=== PATIENT | male | born 1985 | race African-American/Black ===

== ENCOUNTER → 2018-05-26 | Outpatient (CLI) | payer OTHER ==
--- NOTE | 2018-05-26 16:23 | ECHOF ---
Referral Reason:chest pain on breathing R07.1 MEASUREMENTS -------- HEIGHT: 190.5 cm WEIGHT: 126.6 kg BP: 131/67 RVIDd: 3.1 cm (< 3.3) IVSd: 1.3 cm (0.6 - 1.1) LVIDd: 4.4 cm (3.9 - 5.3) LVPWd: 1.3 cm (0.6 - 1.1) IVSs: 1.6 cm LVIDs: 2.6 cm LVPWs: 1.8 cm LAESV Index (A-L): 24.13 ml/m Ao Diam: 3.3 cm (2.0 - 3.7) AV Cusp: 2.4 cm (1.5 - 2.6) LA Diam: 2.8 cm (2.7 - 3.8) EPSS: 0.5 cm MV E Omar: 0.70 m/s MV DecT: 314 ms MV A Omar: 0.80 m/s MV E/A Ratio: 0.87 RAP: 5.00 mmHg RVSP: 24.97 mmHg MV EF SLOPE: 123.31 mm/s (70 - 150) MV EXCURSION: 1.61 cm (> 18.000) FINDINGS -------- Sinus rhythm. This was a technically adequate study. The left ventricular size is normal. There is mild concentric left ventricular hypertrophy. Overa ll left ventricular systolic function is normal with, an EF between 55 - 60 %. The right ventricle is normal in size and function. Normal LA size by volume 22+/-6 ml/m2. The right atrium is normal in size. The aortic valve is trileaflet, and appears structurally normal. No aortic stenosis or regurgitation. The mitral valve is normal. There is trace mitral regurgitation. Trace tricuspid regurgitation present. Right ventricular systolic pressure is normal at < 35 mmHg. There is no evidence of pulmonary hypertension. Trace/mild (physiologic) pulmonic regurgitation. The aortic root size is normal. Normal inferior vena cava with normal inspiratory collapse consistent with estimated right atrial pre ssure of 5 mmHg. There is no pericardial effusion. CONCLUSIONS -------- 1. Sinus rhythm. 2. This was a technically adequate study. 3. The left ventricular size is normal. 4. There is mild concentric left ventricular hypertrophy. 5. Overall left ventricular systolic function is normal with, an EF between 55 - 60 %. 6. Normal LA size by volume 22+/-6 ml/m2. 7. The aortic valve is trileaflet, and appears structurally normal. No aortic stenosis or regurgitati on. 8. There is trace mitral regurgitation. 9. Trace tricuspid regurgitation present. 10. Right ventricular systolic pressure is normal at < 35 mmHg. 11. There is no evidence of pulmonary hypertension. 12. Trace/mild (physiologic) pulmonic regurgitation. 13. The aortic root size is normal. 14. There is no pericardial effusion. PARTS ROOM CLERK: Dannie Eagle RDCS
== END | disposition home or self-care (01) ==
LOC: RADECHMAIN 15:35
PROVIDERS: ATTEND Family Medicine
DX: I08.1 Rheumatic disorders of both mitral and tricuspid valves (principal)
CPT/HCPCS: 93306

== ENCOUNTER 2018-11-11 17:47 | Emergency (ER) | payer OTHER ==
[2018-11-11 18:07] VITALS: BP 143/84; PULSE 81; RESP 16; TEMP 98.1
--- NOTE | 2018-11-11 19:28 | ED ---
ENT HPI - General Chief complaint: ENT Stated complaint: ear pain/trouble hearing Time Seen by Provider: 11/11/18 18:09 Source: patient, RN notes reviewed, old records reviewed Mode of arrival: ambulatory Limitations: no limitations - History of Present Illness Initial comments: Patient is a 33-year-old male who presents to complain of right ear pain. Patient reports his been painful for the past 3 days after he put a Q-tip in his ear while in the shower. Patient states that he is noticed a popping sensation with that his ear since that time. States he also had an episode of severe dizziness after he yawned. Patient states that he has had muffled hearing from the ear. He reports he has had upper respiratory congestion as well as the past week. Patient is concerned he may have perforated his eardrum. Patient denies any other symptoms. - Related Data Home Medications Medication Instructions Recorded Confirmed Albuterol Inhaler [Ventolin Hfa 2 inh INHALATION QID 02/24/16 02/24/16 Inhaler] Ibuprofen [Motrin] 600 mg PO TID 02/24/16 02/24/16 predniSONE 10 mg PO DAILY 02/24/16 02/24/16 Previous Rx's Medication Instructions Recorded Hydrocortisone Suppository 25 mg RECTAL BID #14 supp 02/25/16 [Anusol-HC Suppository] Amoxicillin 500 mg PO TID #21 capsule 11/11/18 Meclizine [Antivert] 25 mg PO TID #15 tab 11/11/18 Allergies Allergy/AdvReac Type Severity Reaction Status Date / Time No Known Allergies Allergy Verified 11/11/18 18:07 Review of Systems ROS Statement: Those systems with pertinent positive or pertinent negative responses have been documented in the HPI. ROS Other: All systems not noted in ROS Statement are negative. Past Medical History Additional Past Medical History / Comment(s): TENDONITIS LEFT THUMB History of Any Multi-Drug Resistant Organisms: None Reported Additional Past Surgical History / Comment(s): CRANIOTOMY 2007- SINUSITIS Past Psychological History: No Psychological Hx Reported Smoking Status: Current every day smoker Past Alcohol Use History: Occasional Past Drug Use History: None Reported General Exam - General Exam Comments Initial Comments: This patient's a 33-year-old male. Alert and oriented. Patient appears in no acute distress. Limitations: no limitations General appearance: alert, in no apparent distress Head exam: Present: atraumatic, normocephalic, normal inspection Eye exam: Present: normal appearance, PERRL, EOMI. Absent: scleral icterus, conjunctival injection, periorbital swelling ENT exam: Present: normal exam, mucous membranes moist. Absent: TM's normal bilaterally (Shows erythematous bulging left TM. No evidence of TM perforation. No drainage noted.) Neck exam: Present: normal inspection. Absent: tenderness, meningismus, lymphadenopathy Respiratory exam: Present: normal lung sounds bilaterally. Absent: respiratory distress, wheezes, rales, rhonchi, stridor Cardiovascular Exam: Present: regular rate, normal rhythm, normal heart sounds. Absent: systolic murmur, diastolic murmur, rubs, gallop, clicks Back exam: Present: normal inspection Neurological exam: Present: alert, oriented X3, CN II-XII intact Psychiatric exam: Present: normal affect, normal mood Course Vital Signs 11/11/18 18:03 Temperature 98.1 F Pulse Rate 81 Respiratory 16 Rate Blood Pressure 143/84 O2 Sat by Pulse 98 Oximetry Medical Decision Making - Medical Decision Making This is a 33-year-old male who presents razor today with upper respiratory congestion, left ear pain. Please acute disease 3 days also concern for perforation. This time I do not see any evidence of drainage or perforation. Patient does have bulging TM. He also complained of some dizziness. Concerned congestion may have caused some vertigo like symptoms. At this time we'll treat the Patient for otitis media with no swollen and erythematous TM is. Patient has been advised to ski trip here from this point forward. We'll also discharge Patient with Antivert. Discussed using decongestant medicine. All questions answered. Disposition Clinical Impression: Left otitis media Disposition: HOME SELF-CARE Condition: Good Instructions: Earache (ED) Additional Instructions: Patient advised to rest, follow-up with primary care physician. Return to the emergency department if any alarming signs or symptoms occur. Prescriptions: Amoxicillin 500 mg PO TID #21 capsule Meclizine [Antivert] 25 mg PO TID #15 tab Is patient prescribed a controlled substance at d/c from ED?: No Referrals: Yulisa Knight MD [Primary Care Provider] - 1-2 days Time of Disposition: 19:27
== END 2018-11-11 19:44 | disposition home or self-care (01) ==
LOC: EC 17:47
DX: H66.92 Otitis media, unspecified, left ear (principal); F17.200 Nicotine dependence, unspecified, uncomplicated; Z79.1 Long term (current) use of non-steroidal anti-inflammatories (NSAID); Z79.52 Long term (current) use of systemic steroids; Z79.899 Other long term (current) drug therapy
CPT/HCPCS: 99283

== ENCOUNTER 2019-04-04 13:52 | Emergency (ER) | payer OTHER ==
[2019-04-04 14:36] VITALS: TEMP 97.9
[2019-04-04] MEDS ORDERED: MORPHINE SULFATE 4 MG/ML SYRINGE IM STA (15:02)
--- NOTE | 2019-04-04 15:15 | ED ---
Lower Extremity Injury HPI - General Chief Complaint: Extremity Injury, Lower Stated Complaint: LEFT FOOT PAIN, Hx MULTIPLE Sx LAST 2 YEARS Time Seen by Provider: 04/04/19 14:42 Source: patient Mode of arrival: wheelchair Limitations: no limitations - History of Present Illness Initial Comments: 33-year-old male presenting for left foot pain. Patient states he has had multiple surgeries over the course of 2 years he states in July 2017 he had a injury to his right knee and ankle after supple injury resulting in foot drop. 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 He states he is on Percocet 10 mg. Patient states he just went back to work on Tuesday he states he has been on his feet more than he has been in the past 2 years. He states that he has increasing pain of the left ankle. Patient states he has noticed mild swelling after work of the left ankle. Patient does have history of DVT after fracture in 2016 denies use of anticoagulation therapy. Patient states he did slightly rolled the left ankle when stepping while at work. He was concerned of possible injury and presented for evaluation pt took 5mg of percocet this morning. Pt states there is no changes in his baseline deficits of numbness or range of motion. Patient denies fever chills night sweats redness or warmth of the left lower extremity or ankle. Denies fall remaining ROS (-). Upon arrival pt appears well, no signs of acute distress. - Related Data Home Medications Medication Instructions Recorded Confirmed Albuterol Inhaler [Ventolin Hfa 2 inh INHALATION QID 02/24/16 04/04/19 Inhaler] Ibuprofen [Motrin] 600 mg PO TID 02/24/16 04/04/19 Previous Rx's Medication Instructions Recorded Hydrocortisone Suppository 25 mg RECTAL BID #14 supp 02/25/16 [Anusol-HC Suppository] Meclizine [Antivert] 25 mg PO TID #15 tab 11/11/18 Allergies Allergy/AdvReac Type Severity Reaction Status Date / Time No Known Allergies Allergy Verified 04/04/19 14:36 Review of Systems ROS Statement: Those systems with pertinent positive or pertinent negative responses have been documented in the HPI. ROS Other: All systems not noted in ROS Statement are negative. Past Medical History Additional Past Medical History / Comment(s): TENDONITIS LEFT THUMB History of Any Multi-Drug Resistant Organisms: None Reported Additional Past Surgical History / Comment(s): CRANIOTOMY 2007- SINUSITIS Past Psychological History: No Psychological Hx Reported Smoking Status: Current every day smoker Past Alcohol Use History: Occasional Past Drug Use History: None Reported General Exam - General Exam Comments Initial Comments: General: The patient is awake and alert, in no distress, and does not appear acutely ill. Eye: +3 mm pupils are equal, round and reactive to light, extra-ocular movements are intact. No nystagmus. There is normal conjunctiva bilaterally. No signs of icterus. Ears, nose, mouth and throat: There are moist mucous membranes and no oral lesions. Neck: The neck is supple, there is no tenderness or JVD. Cardiovascular: There is a regular rate and rhythm. No murmur, rub or gallop is appreciated. Respiratory: Lungs are clear to auscultation, respirations are non-labored, breath sounds are equal. No wheezes, stridor, rales, or rhonchi. Gastrointestinal: Soft, non-distended, non-tender abdomen without masses or organomegaly noted. There is no rebound or guarding present. No CVA tenderness. Bowel sounds are unremarkable. Musculoskeletal: Normal ROM, no tenderness. Strength 5/5. Sensation intact. Radial pulses equal bilaterally 2+. Neurological: A&O x 3. CN II-XII intact, There are no obvious motor or sensory deficits. Coordination appears grossly intact. Speech is normal. Skin: Skin is warm and dry and no rashes or lesions are noted. Multiple scars of the left ankle including anterior midline, medial, lateral. No erythema no warmth no pitting edema, mild soft tissue swelling of the left foot. Pain to palpation of the lateral aspect of the left ankle. Psychiatric: Cooperative, appropriate mood & affect, normal judgment. Limitations: no limitations Course Vital Signs 04/04/19 04/04/19 14:33 16:55 Temperature 97.9 F 97.9 F Pulse Rate 86 82 Respiratory 16 18 Rate Blood Pressure 130/77 136/78 O2 Sat by Pulse 97 100 Oximetry Medical Decision Making - Medical Decision Making 33-year-old male with history of multiple surgeries on the left lower extremity. Patient denies any changes in sensation or weakness in comparison the patient's baseline. Patient has +2 dorsalis pedis pulses bilaterally. No erythema or signs of infection on examination. Pt concerned of injury. Recently started work again on feet weight bearing more than usual--just feels most likely differential diagnosis for cause of pain. Given patient's history of DVT ultrasounds obtained which revealed no evidence of acute deep venous thrombosis. Imaging studies reveal no acute osseous injury. There is possibility of possible tendon injury did recommend follow-up with patient's with [facility] surgeon who performed surgeries. Y states she made an appointment while they were in the emergency department. I recommended no work until patient is about by orthopedic surgery. Patient is agreeable to plan. Patient is to continue medication as prescribed by pain management clinic. Patient was provided pain management in the emergency department. At this time after disc ussing case attempt by Dr. Rosario we feel patient is stable for discharge with outpatient follow-up. Return parameters were discussed at length of both patient and patient's family. Disposition Clinical Impression: Chronic pain of left ankle, Acute left ankle pain Disposition: HOME SELF-CARE Condition: Good Instructions (If sedation given, give patient instructions): R.I.C.E. Treatment (ED) Additional Instructions: Please use medication as discussed. Please follow-up with orthopedic surgeon within the next week. Please return to emergency room if the symptoms increase or worsen or for any other concerns. Is patient prescribed a controlled substance at d/c from ED?: No Referrals: Yulisa Knight MD [Primary Care Provider] - 1-2 days Time of Disposition: 16:30
--- NOTE | 2019-04-04 15:36 | XR ---
EXAMINATION TYPE: XR ankle complete LT DATE OF EXAM: 04/04/2019 COMPARISON: NONE HISTORY: Pain TECHNIQUE: 3 views of the left ankle are submitted for evaluation. FINDINGS: There is no evidence for fracture or dislocation. Ankle mortise is intact. Soft tissues are within normal limits. IMPRESSION: 1. No evidence for acute fracture.
--- NOTE | 2019-04-04 16:26 | US ---
EXAMINATION TYPE: US venous doppler duplex LE LT DATE OF EXAM: 04/04/2019 4:17 PM COMPARISON: NONE CLINICAL HISTORY: Pain. Swelling, DVT x 2 years ago in left leg. Not on blood thinners now. Multipl e surgeries on left leg. Left ankle swelling. Patient states missing a step yesterday. SIDE PERFORMED: Left TECHNIQUE: The lower extremity deep venous system is examined utilizing real time linear array sonog jackson with graded compression, doppler sonography and color-flow sonography. VESSELS IMAGED: External Iliac Vein (EIV) Common Femoral Vein Deep Femoral Vein Greater Saphenous Vein * Femoral Vein Popliteal Vein Small Saphenous Vein * Proximal Calf Veins (* superficial vessels) Left Leg: Negative for DVT IMPRESSION: No evidence for DVT at this time.
[2019-04-04] MEDS ORDERED: HYDROmorphone 0.5 MG/0.5 ML SYRINGE IM STA (16:46)
[2019-04-04 17:31] VITALS: BP 136/78; PULSE 82; RESP 18
== END 2019-04-04 16:55 | disposition home or self-care (01) ==
LOC: EC 13:52
DX: M25.572 Pain in left ankle and joints of left foot (principal); G89.29 Other chronic pain; M79.89 Other specified soft tissue disorders; L90.5 Scar conditions and fibrosis of skin; M79.672 Pain in left foot; M21.371 Foot drop, right foot; F17.200 Nicotine dependence, unspecified, uncomplicated; Z79.1 Long term (current) use of non-steroidal anti-inflammatories (NSAID); Z79.891 Long term (current) use of opiate analgesic; Z79.899 Other long term (current) drug therapy; Z86.718 Personal history of other venous thrombosis and embolism; Z98.890 Other specified postprocedural states
CPT/HCPCS: 73610; 93971; 99284; 96372 ×2; J2270; J1170

== ENCOUNTER 2019-10-29 06:11 | Emergency (ER) | payer OTHER ==
--- NOTE | 2019-10-29 06:28 | ED ---
Lower Extremity Injury HPI - General Stated Complaint: Lft Leg Pain Time Seen by Provider: 10/29/19 06:18 Source: patient, RN notes reviewed Mode of arrival: ambulatory Limitations: no limitations - History of Present Illness Initial Comments: 34-year-old male presents emergency Department with chief complaint of left knee pain. Patient states has been ongoing since his surgery was 6 months ago for ACL, LCL and MCL repair. Patient states he had very extensive surgery. Patient states that he recently started new job 3 skeletal he's been having worsening symptoms. Denies any paresthesias. Patient states that his knee swells which is constant he wears compression stockings since the surgery. Patient is unable to see his orthopedic physician secondary to insurance changes. - Related Data Home Medications Medication Instructions Recorded Confirmed Albuterol Inhaler [Ventolin Hfa 2 inh INHALATION QID 02/24/16 04/04/19 Inhaler] Ibuprofen [Motrin] 600 mg PO TID 02/24/16 04/04/19 Previous Rx's Medication Instructions Recorded Hydrocortisone Suppository 25 mg RECTAL BID #14 supp 02/25/16 [Anusol-HC Suppository] Meclizine [Antivert] 25 mg PO TID #15 tab 11/11/18 Allergies Allergy/AdvReac Type Severity Reaction Status Date / Time No Known Allergies Allergy Verified 04/04/19 14:36 Review of Systems ROS Statement: Those systems with pertinent positive or pertinent negative responses have been documented in the HPI. ROS Other: All systems not noted in ROS Statement are negative. Past Medical History Additional Past Medical History / Comment(s): TENDONITIS LEFT THUMB History of Any Multi-Drug Resistant Organisms: None Reported Additional Past Surgical History / Comment(s): CRANIOTOMY 2007- SINUSITIS Past Psychological History: No Psychological Hx Reported Smoking Status: Current every day smoker Past Alcohol Use History: Occasional Past Drug Use History: None Reported General Exam General appearance: alert, in no apparent distress Head exam: Present: atraumatic, normocephalic, normal inspection Respiratory exam: Present: normal lung sounds bilaterally. Absent: respiratory distress, wheezes, rales, rhonchi, stridor Cardiovascular Exam: Present: regular rate, normal rhythm, normal heart sounds. Absent: systolic murmur, diastolic murmur, rubs, gallop, clicks Extremities exam: Present: other (Left knee there is a lateral scar well-healed, there is mild swelling, diffuse times with palpation no increased warmth neurovascular intact leg tenderness) Course Vital Signs 10/29/19 06:24 Temperature 98.1 F Pulse Rate 85 Respiratory 18 Rate Blood Pressure 131/75 O2 Sat by Pulse 98 Oximetry Medical Decision Making - Medical Decision Making 34-year-old presented for left leg knee pain. Patient's x-ray shows possible surgical changes osteoarthritis old ligamentous injuries. Patient had increasing pain with returning to work. The explain this is most likely from not conditioning. Patient advised to wear his knee brace follow-up with orthopedic physician continue to ice and rest and elevate. Disposition Clinical Impression: Left knee pain Disposition: HOME SELF-CARE Condition: Stable Instructions (If sedation given, give patient instructions): Knee Pain (ED) Additional Instructions: Please return to the Emergency Department if symptoms worsen or any other concerns. Is patient prescribed a controlled substance at d/c from ED?: No Referrals: Yulisa Knight MD [Primary Care Provider] - 1-2 days Levi Horowitz DO [Doctor of Osteopathic Medicine] - 1-2 days Time of Disposition: 06:50
[2019-10-29 06:38] VITALS: BP 131/75; PULSE 85; RESP 18; TEMP 98.1
--- NOTE | 2019-10-29 06:41 | XR ---
EXAMINATION TYPE: XR knee complete LT DATE OF EXAM: 10/29/2019 COMPARISON: NONE HISTORY: Knee pain TECHNIQUE: 3 views FINDINGS: There is calcification medially and laterally at the knee joint. There is hypertrophic mild spurring. There is old reconstructive surgery noted. There is no definite knee joint effusion. There is minor spurring on the patella. IMPRESSION: Old ligamentous injury. Previous surgery. No fracture. Mild osteoarthritis.
[2019-10-29] MEDS ORDERED: oxyCODONE-APAP 7.5-325MG 1 EACH TAB PO STA (06:49)
== END 2019-10-29 07:02 | disposition home or self-care (01) ==
LOC: EC 06:11
DX: M25.562 Pain in left knee (principal); M79.89 Other specified soft tissue disorders; F17.200 Nicotine dependence, unspecified, uncomplicated; Z79.1 Long term (current) use of non-steroidal anti-inflammatories (NSAID); Z87.39 Personal history of other diseases of the musculoskeletal system and connective tissue; Z98.890 Other specified postprocedural states
CPT/HCPCS: 99283

== ENCOUNTER 2019-12-01 00:12 | Emergency (ER) | payer OTHER ==
[2019-12-01 00:19] VITALS: TEMP 98
[2019-12-01] MEDS ORDERED: KETOROLAC 30 MG/ML 1 ML VIAL IM STA (00:48)
--- NOTE | 2019-12-01 01:07 | ED ---
General Adult HPI - General Chief complaint: Extremity Injury, Lower Stated complaint: left foot & knee pain Time Seen by Provider: 12/01/19 00:22 Source: patient, RN notes reviewed Mode of arrival: ambulatory Limitations: no limitations - History of Present Illness Initial comments: 34-year-old male presents to the emergency department for a chief complaint of left foot and ankle pain. Patient states that he was at work using a floor buffer when he twisted his left ankle wrong. States he felt a pop. States that since that time he has had severe pain in his left foot and ankle. Patient has surgical history of the left ankle 2 years ago. He states he can and landed on it but it is painful.Patient has no other complaints at this time including shortness of breath, chest pain, abdominal pain, nausea or vomiting, headache, or visual changes. - Related Data Home Medications Medication Instructions Recorded Confirmed Albuterol Inhaler [Ventolin Hfa 2 inh INHALATION QID 02/24/16 04/04/19 Inhaler] Ibuprofen [Motrin] 600 mg PO TID 02/24/16 04/04/19 Previous Rx's Medication Instructions Recorded Hydrocortisone Suppository 25 mg RECTAL BID #14 supp 02/25/16 [Anusol-HC Suppository] Meclizine [Antivert] 25 mg PO TID #15 tab 11/11/18 Allergies Allergy/AdvReac Type Severity Reaction Status Date / Time No Known Allergies Allergy Verified 12/01/19 00:19 Review of Systems ROS Statement: Those systems with pertinent positive or pertinent negative responses have been documented in the HPI. ROS Other: All systems not noted in ROS Statement are negative. Past Medical History Additional Past Medical History / Comment(s): TENDONITIS LEFT THUMB History of Any Multi-Drug Resistant Organisms: None Reported Past Surgical History: Orthopedic Surgery Additional Past Surgical History / Comment(s): CRANIOTOMY 2007- SINUSITIS, Past Psychological History: No Psychological Hx Reported Smoking Status: Current every day smoker Past Alcohol Use History: Occasional Past Drug Use History: None Reported General Exam Limitations: no limitations General appearance: alert, in no apparent distress Head exam: Present: atraumatic, normocephalic, normal inspection Eye exam: Present: normal appearance, PERRL, EOMI. Absent: scleral icterus, conjunctival injection, periorbital swelling ENT exam: Present: normal exam, mucous membranes moist Neck exam: Present: normal inspection. Absent: tenderness, meningismus, lymphadenopathy Respiratory exam: Present: normal lung sounds bilaterally. Absent: respiratory distress, wheezes, rales, rhonchi, stridor Cardiovascular Exam: Present: regular rate, normal rhythm, normal heart sounds. Absent: systolic murmur, diastolic murmur, rubs, gallop, clicks Extremities exam: Present: tenderness (Generalized tenderness of the left ankle and foot), normal capillary refill (cap refill less than 2 seconds extremity pulse 2+.), other (sensation intact). Absent: full ROM (Patient has intact plantar and dorsi flexor mechanisms however range of motion is limited to pain.), pedal edema, joint swelling (no edema of the left foot or ankle), calf tenderness Course Vital Signs 12/01/19 00:15 Temperature 98 F Pulse Rate 98 Respiratory 20 Rate Blood Pressure 146/85 O2 Sat by Pulse 98 Oximetry Procedures - Orthopedic Splinting/Casting Injury #1 Side: left Lower Extremity Injury Location: ankle Lower Extremity Immobilizer: AirCast Other Orthopedic Equipment: crutches Medical Decision Making - Medical Decision Making X-ray of the left ankle is negative. There is small exostois in the lateral cortex distal shaft of doubtful significance. X-ray of the left foot is negative. Neurovascular status is intact. Patient was splinted in an Aircast. Patient will take Motrin Tylenol for pain and follow up with primary care or his orthopedic surgeon. He will return here if he has any worsening symptoms. Disposition Clinical Impression: Ankle pain, left Disposition: HOME SELF-CARE Condition: Good Instructions (If sedation given, give patient instructions): Ankle Sprain (ED) Additional Instructions: Please take Motrin and Tylenol for pain. Rest ice and elevate the left ankle. Use crutches as needed. follow up with orthopedics in one to 2 days. Return here if you have any worsening symptoms. Is patient prescribed a controlled substance at d/c from ED?: No Referrals: Yulisa Knight MD [Primary Care Provider] - 1-2 days Time of Disposition: 01:44
--- NOTE | 2019-12-01 01:20 | XR ---
EXAMINATION TYPE: XR ankle complete LT DATE OF EXAM: 12/01/2019 COMPARISON: NONE HISTORY: Ankle pain TECHNIQUE: 3 views FINDINGS: I see no fracture nor dislocation. Ankle mortise is anatomic. Joint spaces are fairly pradeep l. IMPRESSION: Negative left ankle exam. There is small exostosis in the lateral cortex distal shaft of the tibia of doubtful significance.
--- NOTE | 2019-12-01 01:21 | XR ---
EXAMINATION TYPE: XR foot complete LT DATE OF EXAM: 12/01/2019 COMPARISON: NONE HISTORY: Pain TECHNIQUE: 3 views FINDINGS: Metatarsals are intact. I see no fracture nor dislocation. There is rounded lucency in the third cuneiform bone that could relate to previous surgery. IMPRESSION: No acute abnormality of the left foot.
[2019-12-01 02:46] VITALS: BP 133/83; PULSE 77; RESP 18
== END 2019-12-01 02:06 | disposition home or self-care (01) ==
LOC: EC 00:12
DX: M25.572 Pain in left ankle and joints of left foot (principal); F17.200 Nicotine dependence, unspecified, uncomplicated
CPT/HCPCS: 73610; 73630; 99283; 96372; J1885

== ENCOUNTER 2020-08-24 16:44 | Emergency (ER) | payer OTHER ==
[2020-08-24] MEDS ORDERED: KETOROLAC 15 MG/ML 1 ML VIAL IM STA (18:11)
[2020-08-24] MEDS ORDERED: oxyCODONE-APAP 10-325MG 1 EACH TAB PO STA (18:11)
[2020-08-24 18:28] VITALS: RESP 20
--- NOTE | 2020-08-24 18:50 | ED ---
General Adult HPI - General Chief complaint: Extremity Problem,Nontraumatic Stated complaint: Spider bite Time Seen by Provider: 08/24/20 18:02 Source: patient Mode of arrival: ambulatory Limitations: no limitations - History of Present Illness Initial comments: 35-year-old male patient presents to the emergency department today for evaluation of left ankle and foot pain and swelling. He is also reporting a lesion to the posterior scalp that he is concerned may be a spider bite. Patient states that the ankle and foot have been swelling for the last few months. States that he had previous surgery to the tendons around the ankle and it has been having problems with that since. Patient states that he did wear different shoes yesterday which seemed to exacerbate his symptoms. States that he didn't trip down a step and twisted the foot and ankle. He does take Percocet at home, states that it does seem to control the pain for a short time. Patient states that 3 days ago he developed an itchy bump to the back of his head. Patient states that over the last 3 days the bump has increased in size and become more hard. He denies any significant pain to the area. Denies fever or chills. Denies any drainage from the lesion. Patient denies any headache, neck pain, back pain, chest pain, shortness of breath, dizziness, weakness, abdominal pain, nausea, vomiting, or difficulties with bowel movements or urination. - Related Data Home Medications Medication Instructions Recorded Confirmed Albuterol Inhaler (Mhu) [Ventolin 2 inh INHALATION QID 02/24/16 04/04/19 Hfa Inhaler (Mhu)] Ibuprofen [Motrin] 600 mg PO TID 02/24/16 04/04/19 Previous Rx's Medication Instructions Recorded Hydrocortisone Suppository 25 mg RECTAL BID #14 supp 02/25/16 [Anusol-HC Suppository] Meclizine [Antivert] 25 mg PO TID #15 tab 11/11/18 Ibuprofen [Motrin] 600 mg PO Q8HR PRN #30 tab 08/24/20 Allergies Allergy/AdvReac Type Severity Reaction Status Date / Time No Known Allergies Allergy Verified 08/24/20 17:05 Review of Systems ROS Statement: Those systems with pertinent positive or pertinent negative responses have been documented in the HPI. ROS Other: All systems not noted in ROS Statement are negative. Past Medical History Past Medical History: No Reported History Additional Past Medical History / Comment(s): TENDONITIS LEFT THUMB History of Any Multi-Drug Resistant Organisms: None Reported Past Surgical History: Orthopedic Surgery Additional Past Surgical History / Comment(s): CRANIOTOMY 2007- SINUSITIS, Past Psychological History: Depression Smoking Status: Current every day smoker Past Alcohol Use History: Occasional Past Drug Use History: None Reported General Exam Limitations: no limitations General appearance: alert, in no apparent distress, other (This is a well- developed, well-nourished adult male patient in no acute distress. Vital signs upon presentation are temperature 98.0F, pulse 90, respirations 18, blood pressure 143/92, pulse ox 99% on room air.) Head exam: Present: other (There is 2cm circular, indurated lesion to the posterior scalp. No drainage. No warmth. ) Respiratory exam: Present: normal lung sounds bilaterally. Absent: respiratory distress, wheezes, rales, rhonchi, stridor Cardiovascular Exam: Present: regular rate, normal rhythm, normal heart sounds. Absent: systolic murmur, diastolic murmur, rubs, gallop, clicks GI/Abdominal exam: Present: soft, normal bowel sounds. Absent: distended, tenderness, guarding, rebound, rigid Extremities exam: Present: full ROM, normal capillary refill, other (There is soft tissue swelling surrounding the left ankle and the left foot. There is fifth metatarsal tenderness. Skin is otherwise warm, dry. Cap refill less than 3 seconds. Pedal and posttibial pulses are 2+ and equal bilaterally.). Absent: normal inspection, tenderness, pedal edema, joint swelling, calf tenderness Neurological exam: Present: alert, oriented X3, CN II-XII intact Psychiatric exam: Present: normal affect, normal mood Skin exam: Present: warm, dry, intact, normal color. Absent: rash Course Vital Signs 08/24/20 08/24/20 17:01 18:05 Temperature 98.0 F Pulse Rate 90 74 Respiratory 18 20 Rate Blood Pressure 143/92 O2 Sat by Pulse 99 98 Oximetry Medical Decision Making - Medical Decision Making 35-year-old male patient presents to the emergency department today for evaluation of a questionable bug bite to his posterior scalp and also reporting swelling and pain to the left foot and ankle. Physical examination did reveal generalized soft tissue swelling to the left foot and ankle. Neurovascular status was intact. X-rays were obtained and were negative for any acute osseous abnormality. Patient has had previous surgery to the site so we did recommend following up with his surgeon for further evaluation. The area to the posterior scalp is 2cm and indurated. Suspect this was a small abscess or area of folliculitis. It does appear to be healing. No drainage, no warmth. No fever. He'll be discharged follow-up with his psychiatric clinical nurse specialist and primary care physician for recheck aspossible. Return parameters discussed in detail. He verbalizes understanding and agrees with this plan. - Radiology Data Radiology results: report reviewed, image reviewed 3 views of the left ankle are obtained. Report is reviewed in its entirety. Impression by Dr. Wyatt shows no acute abnormality of the left ankle. No change 3 views of the left foot are obtained. Report reviewed in its entirety. Impression by Dr. Wyatt shows no acute abnormality of the left foot. No fracture. No change. Disposition Clinical Impression: Insect bite of scalp, Sprain of left foot Disposition: HOME SELF-CARE Condition: Good Instructions (If sedation given, give patient instructions): Insect Bite or Sting (ED), Foot Sprain (ED) Additional Instructions: Rest, ice, elevate the left foot and ankle. Take medications as needed for pain control. Follow-up with your psychiatric clinical nurse specialist for further evaluation. Follow-up with her primary care physician for recheck in 1-2 days. Return to the emergency department immediately for any new, worsening, or concerning symptoms. Prescriptions: Ibuprofen [Motrin] 600 mg PO Q8HR PRN #30 tab PRN Reason: Pain Is patient prescribed a controlled substance at d/c from ED?: No Referrals: Yulisa Knight MD [Primary Care Provider] - 1-2 days Time of Disposition: 19:02
--- NOTE | 2020-08-24 18:58 | XR ---
EXAMINATION TYPE: XR ankle complete LT DATE OF EXAM: 08/24/2020 COMPARISON: 12/01/2019 HISTORY: Pain TECHNIQUE: 3 views FINDINGS: Ankle mortise is anatomic. I see no fracture nor dislocation. Joint spaces are normal. There is some calcification on the lateral aspect of the lower tibia that could relate to calcification of the inte rosseous ligament. IMPRESSION: No acute abnormality of the left ankle. No change.
--- NOTE | 2020-08-24 18:59 | XR ---
EXAMINATION TYPE: XR foot complete LT DATE OF EXAM: 08/24/2020 COMPARISON: 12/01/2019 HISTORY: Foot pain. Technique 3 views : Metatarsals are intact. I see no fracture nor dislocation. Joint spaces are fairly normal. There ar e small Achilles calcaneal spur. IMPRESSION: No acute abnormality of the left foot. No fracture. No change.
[2020-08-24 19:30] VITALS: BP 154/86; PULSE 76; TEMP 98.1
== END 2020-08-24 19:29 | disposition home or self-care (01) ==
LOC: EC 16:44
DX: S93.602A Unspecified sprain of left foot, initial encounter (principal); S00.06XA Insect bite (nonvenomous) of scalp, initial encounter; F17.200 Nicotine dependence, unspecified, uncomplicated; Z98.890 Other specified postprocedural states; X50.9XXA Other and unspecified overexertion or strenuous movements or postures, initial encounter; W57.XXXA Bitten or stung by nonvenomous insect and other nonvenomous arthropods, initial encounter
CPT/HCPCS: 96372 ×2; 99283 ×2; 29505 ×2; 73610; 73630; J1885

== ENCOUNTER 2021-02-25 17:07 | Emergency (ER) | payer OTHER ==
[2021-02-25 18:17] VITALS: TEMP 98
--- NOTE | 2021-02-25 20:08 | ED ---
General Adult HPI - General Chief complaint: Neck Pain/Injury Stated complaint: Mouth/jaw pain Time Seen by Provider: 02/25/21 19:50 Source: patient, RN notes reviewed Mode of arrival: ambulatory Limitations: no limitations - History of Present Illness Initial comments: Patient is a 35-year-old male that presents to emergency with left-sided submandibular irritation. He notes that over the last several days he was eating something and felt a pop-like sensation on the left side of his submandibular region. He notes that it swelled up but eventually went away so he didn't think anything of it. He noted that last night in his left upper the kids and were "having a dull activities" and he noticed that his left side of his some mandibular region was irritated again and swelled up a little bit. He noted that it eventually did go back down. He noted this morning he went to take a drink of his juice and felt a pop-like sensation again and it swelled up. He decided come emergency room to check to make sure he didn't have any abscesses or issues. He recently did just get some teeth pulled in partial dental prosthetics. He denied any pain currently while sitting up in a chair during exam and interview, throat pain, cough, trauma, chest pain shortness of breath headache nausea vomiting diarrhea constipation fever fatigue chills. - Related Data Home Medications Medication Instructions Recorded Confirmed Albuterol Inhaler (Mhu) [Ventolin 2 inh INHALATION QID 02/24/16 04/04/19 Hfa Inhaler (Mhu)] Ibuprofen [Motrin] 600 mg PO TID 02/24/16 04/04/19 Previous Rx's Medication Instructions Recorded Hydrocortisone Suppository 25 mg RECTAL BID #14 supp 02/25/16 [Anusol-HC Suppository] Meclizine [Antivert] 25 mg PO TID #15 tab 11/11/18 Ibuprofen [Motrin] 600 mg PO Q8HR PRN #30 tab 08/24/20 Allergies Allergy/AdvReac Type Severity Reaction Status Date / Time No Known Allergies Allergy Verified 02/25/21 18:18 Review of Systems ROS Statement: Those systems with pertinent positive or pertinent negative responses have been documented in the HPI. ROS Other: All systems not noted in ROS Statement are negative. Past Medical History Past Medical History: No Reported History Additional Past Medical History / Comment(s): TENDONITIS LEFT THUMB History of Any Multi-Drug Resistant Organisms: None Reported Past Surgical History: Orthopedic Surgery Additional Past Surgical History / Comment(s): CRANIOTOMY 2007- SINUSITIS, Past Psychological History: Depression Smoking Status: Current every day smoker Past Alcohol Use History: Occasional Past Drug Use History: None Reported General Exam Limitations: no limitations General appearance: alert, in no apparent distress Head exam: Present: atraumatic, normocephalic, normal inspection Eye exam: Present: normal appearance, PERRL, EOMI. Absent: scleral icterus, conjunctival injection, periorbital swelling ENT exam: Present: normal exam, mucous membranes moist Neck exam: Present: normal inspection. Absent: tenderness, meningismus, lymphadenopathy Respiratory exam: Present: normal lung sounds bilaterally. Absent: respiratory distress, wheezes, rales, rhonchi, stridor Cardiovascular Exam: Present: regular rate, normal rhythm, normal heart sounds. Absent: systolic murmur, diastolic murmur, rubs, gallop, clicks GI/Abdominal exam: Present: soft, normal bowel sounds. Absent: distended, tenderness, guarding, rebound, rigid Extremities exam: Present: normal inspection, full ROM, normal capillary refill. Absent: tenderness, pedal edema, joint swelling, calf tenderness Neurological exam: Present: alert, oriented X3, CN II-XII intact Psychiatric exam: Present: normal affect, normal mood Skin exam: Present: warm, dry, intact, normal color. Absent: rash Course Vital Signs 02/25/21 18:14 Temperature 98.0 F Pulse Rate 81 Respiratory 16 Rate Blood Pressure 139/94 O2 Sat by Pulse 100 Oximetry Medical Decision Making - Medical Decision Making 35-year-old male with left submandibular region irritation that it swelled up and gone down on its own over the last couple days. Soft tissue x-ray of the neck ordered. To check for any abscesses or soft tissue swelling. Patient was nontender, nonswollen and had no difficulty swallowing during the exam. Soft tissue x-ray of the neck negative. Case discussed with Dr. Bronson patient to discharge home with follow-up to dentist and/or ENT. - Radiology Data Radiology results: report reviewed, image reviewed Soft tissue x-ray: Negative cervical soft tissue exam. Disposition Clinical Impression: Strain of neck muscle Disposition: HOME SELF-CARE Condition: Stable Instructions (If sedation given, give patient instructions): Cervical Strain (ED) Additional Instructions: Please return to the Emergency Department if symptoms worsen or any other concerns. Follow-up with primary care in 3-5 days, follow-up with dentist as needed for possible salivary gland issue. Take [id number] anti-inflammatories for any swelling and/or pain. Try to avoid any strenuous activity involving the neck for the next several days. Is patient prescribed a controlled substance at d/c from ED?: No Referrals: Yulisa Knight MD [Primary Care Provider] - 1-2 days Time of Disposition: 20:42
--- NOTE | 2021-02-25 20:34 | XR ---
EXAMINATION TYPE: XR soft tissue neck DATE OF EXAM: 02/25/2021 COMPARISON: NONE HISTORY: Mandibular pain TECHNIQUE: 2 views FINDINGS: Cervical vertebra have normal alignment. Epiglottis is normal. Prevertebral soft tissues ap pear normal. Tonsils and adenoids appear normal. Subglottic trachea appears normal. IMPRESSION: Negative cervical soft tissue exam.
[2021-02-25 21:03] VITALS: BP 124/74; PULSE 80; RESP 18
== END 2021-02-25 21:03 | disposition home or self-care (01) ==
LOC: EC 17:07
DX: S16.1XXA Strain of muscle, fascia and tendon at neck level, initial encounter (principal); R68.84 Jaw pain; F32.9 Major depressive disorder, single episode, unspecified; F17.200 Nicotine dependence, unspecified, uncomplicated; X58.XXXA Exposure to other specified factors, initial encounter
CPT/HCPCS: 70360; 99283

== ENCOUNTER 2021-09-16 18:16 | Emergency (ER) | payer OTHER ==
--- NOTE | 2021-09-16 19:38 | ED ---
General Adult HPI - General Source: patient, police, RN notes reviewed, old records reviewed Mode of arrival: ambulatory Limitations: no limitations <Xavier Rosario - Last Filed: 09/16/21 20:29> <Xavier Caba - Last Filed: 09/16/21 22:35> - General Chief complaint: Psychiatric Symptoms Stated complaint: mental health Time Seen by Provider: 09/16/21 18:50 - History of Present Illness Initial comments: This is a 36-year-old male presents emergency department because he was petition by his . Patient's states he took a bunch of Percocet patient denies this. Patient denies being suicidal or homicidal. Patient states he didn't do any drinking today and he denies any illegal drug use. Patient states his and him are going through a divorce and he believe she made this up because he states he did not take any extra pills. Patient states he currently is not suicidal. Patient denies any physical complaint today. Patient denies any chest pain difficulty breathing shortness of breath. Patient denies any fever chills or cough patient denies any abdominal pain patient denies nausea vomiting or diarrhea. (Xavier Rosario) - Related Data Home Medications Medication Instructions Recorded Confirmed Ibuprofen [Motrin Ib] 800 mg PO Q8H PRN 09/16/21 09/16/21 oxyCODONE-APAP 10-325MG [Percocet 1 tab PO TID PRN 09/16/21 09/16/21 10-325 mg] Allergies Allergy/AdvReac Type Severity Reaction Status Date / Time No Known Allergies Allergy Verified 09/16/21 20:49 Review of Systems ROS Other: All systems not noted in ROS Statement are negative. <Xavier Rosario - Last Filed: 09/16/21 20:29> ROS Other: All systems not noted in ROS Statement are negative. <Xavier Caba - Last Filed: 09/16/21 22:35> ROS Statement: Those systems with pertinent positive or pertinent negative responses have been documented in the HPI. Past Medical History Past Medical History: No Reported History Additional Past Medical History / Comment(s): TENDONITIS LEFT THUMB History of Any Multi-Drug Resistant Organisms: None Reported Past Surgical History: Orthopedic Surgery Additional Past Surgical History / Comment(s): CRANIOTOMY 2007- SINUSITIS, Past Psychological History: Depression Smoking Status: Current every day smoker Past Alcohol Use History: Occasional Past Drug Use History: None Reported <Xavier Rosario - Last Filed: 09/16/21 20:29> General Exam Limitations: no limitations <Xavier Rosario - Last Filed: 09/16/21 20:29> General appearance: alert, in no apparent distress Head exam: Present: atraumatic, normocephalic, normal inspection Eye exam: Present: normal appearance, PERRL, EOMI. Absent: scleral icterus, conjunctival injection, periorbital swelling ENT exam: Present: normal exam, mucous membranes moist Neck exam: Present: normal inspection. Absent: tenderness, meningismus, lymphadenopathy Respiratory exam: Present: normal lung sounds bilaterally. Absent: respiratory distress, wheezes, rales, rhonchi, stridor Cardiovascular Exam: Present: regular rate, normal rhythm, normal heart sounds. Absent: systolic murmur, diastolic murmur, rubs, gallop, clicks GI/Abdominal exam: Present: soft, normal bowel sounds. Absent: distended, tenderness, guarding, rebound, rigid Extremities exam: Present: normal inspection, full ROM, normal capillary refill. Absent: tenderness, pedal edema, joint swelling, calf tenderness Back exam: Present: normal inspection Neurological exam: Present: alert, oriented X3, CN II-XII intact Psychiatric exam: Present: normal affect, normal mood Skin exam: Present: warm, dry, intact, normal color. Absent: rash <Xavier Caba - Last Filed: 09/16/21 22:35> - General Exam Comments Initial Comments: GENERAL: Patient is well-developed and well-nourished. Patient is nontoxic and well- hydrated and is in no acute distress. ENT: Neck is soft and supple. No significant lymphadenopathy is noted. Oropharynx is clear. Moist mucous membranes. Neck has full range of motion without eliciting any pain. EYES: The sclera were anicteric and conjunctiva were pink and moist. Extraocular movements were intact and pupils were equal round and reactive to light. Eyelids were unremarkable. PULMONARY: Unlabored respirations. Good breath sounds bilaterally. No audible rales rhonchi or wheezing was noted. CARDIOVASCULAR: There is a regular rate and rhythm without any murmurs gallops or rubs. ABDOMEN: Soft and nontender with normal bowel sounds. SKIN: Skin is clear with no lesions or rashes and otherwise unremarkable. NEUROLOGIC: Patient is alert and oriented x3. Cranial nerves II through XII are grossly intact. Motor and sensory are also intact. Normal speech, volume and content. Symmetrical smile. MUSCULOSKELETAL: Normal extremities with adequate strength and full range of motion. LYMPHATICS: No significant lymphadenopathy is noted PSYCHIATRIC: Patient denies any suicidal or homicidal ideations. Patient denies any overdose. Patient denies any attempt at overdose. (Xavier Rosario) Course <Xavier Caba - Last Filed: 09/16/21 22:35> Vital Signs 09/16/21 09/16/21 18:48 21:20 Temperature 98.7 F Pulse Rate 101 H 89 Respiratory 20 19 Rate Blood Pressure 163/103 155/90 O2 Sat by Pulse 98 98 Oximetry - Reevaluation(s) Reevaluation #1: 09/16/21 22:34 Medical records reviewed (Xavier Caba) Reevaluation #2: 09/16/21 22:34 Patient was seen and evaluated here in the ER with psychiatry after being made medically clear (Xavier Caba) Medical Decision Making <Xaiver Rosario - Last Filed: 09/16/21 20:29> <Xavier Caba - Last Filed: 09/16/21 22:35> - Medical Decision Making told the nurse that the patient took the medicine about 440 today. Patient's Tylenol level was 0. He has been cleared for EPS to evaluate. Dr. Caba will be taking over the care of this patient at 9 PM (Xavier Rosario) 36-year-old male seen eval by psychiatry, again no overdose on Tylenol will be discharged to care of parents (Xavier Caba) - Lab Data Lab Results 09/16/21 09/16/21 Range/Units 19:34 19:34 Salicylates <1.0 mg/dL Urine Opiates Screen Not Detected (NotDetected) Ur Oxycodone Screen Detected H (NotDetected) Urine Methadone Screen Not Detected (NotDetected) Ur Propoxyphene Screen Not Detected (NotDetected) Acetaminophen <10.0 ug/mL Ur Barbiturates Screen Not Detected (NotDetected) U Tricyclic Antidepress Not Detected (NotDetected) Ur Phencyclidine Scrn Not Detected (NotDetected) Ur Amphetamines Screen Not Detected (NotDetected) U Methamphetamines Scrn Not Detected (NotDetected) U Benzodiazepines Scrn Not Detected (NotDetected) Urine Cocaine Screen Not Detected (NotDetected) U Marijuana (THC) Screen Not Detected (NotDetected) Disposition <Xavier Rosario - Last Filed: 09/16/21 20:29> Is patient prescribed a controlled substance at d/c from ED?: No <Xavier Caba - Last Filed: 09/16/21 22:35> Clinical Impression: Grief, Depression Disposition: HOME SELF-CARE Condition: Fair Instructions (If sedation given, give patient instructions): Grief and Loss (ED) Referrals: Yulisa Knight MD [Primary Care Provider] - 1-2 days
[2021-09-16 20:02] LABS: Acetaminophen <10.0 ug/mL; Salicylate <1.0 mg/dL
[2021-09-16 20:03] LABS: Amphetamine Screen,Urine Not Detected (NotDetected); Benzodiazepines Screen,Urine Not Detected (NotDetected); Cocaine Screen,Urine Not Detected (NotDetected); Opiate Screen,Urine Not Detected (NotDetected); Phencyclidine Screen,Urine Not Detected (NotDetected)
[2021-09-16 20:04] LABS: Barbiturate Screen,Urine Not Detected (NotDetected); Methadone Screen, Urine Not Detected (NotDetected); Oxycodone Screen, Urine Detected (NotDetected); Tricyclic Antidepressant,Urine Not Detected (NotDetected); Urn Cannabinoid Scrn Not Detected (NotDetected)
[2021-09-16 22:50] VITALS: BP 144/88; PULSE 79; RESP 18; TEMP 98
== END 2021-09-16 22:50 | disposition home or self-care (01) ==
LOC: EC 18:16
DX: F43.21 Adjustment disorder with depressed mood (principal); F17.200 Nicotine dependence, unspecified, uncomplicated
CPT/HCPCS: 36415; 80143; 80179; 80306; 82075; 99284